=== PATIENT | male | born 1960 | race Two or more races ===

== ENCOUNTER 2017-09-25 11:08 | Emergency (ER) | payer MEDICAID, OTHER ==
[2017-09-25 11:21] VITALS: BP 141/90; PULSE 91; RESP 18; TEMP 98.8; O2SAT 91
--- NOTE | 2017-09-25 11:27 | EDPHY ---
H & P Time Seen by Provider: 09/25/17 11:15 HPI/ROS: 57-year-old male presents complaining of right hand swelling and left knee swelling exactly like multiple prior episodes of gout. No fever or chills He states he has allopurinol, but that is not working. Review of systems As per HPI General no fever no chills no weakness HEENT no eye pain no eye discharge. No eye redness, no sore throat Respiratory no cough, no shortness of breath Cardiac no chest pain, no peripheral edema GI no abdominal pain, no diarrhea, no constipation, no nausea, no vomiting no flank pain, no hematuria, no dysuria Musculoskeletal no myalgias, positive joint pain Heme no easy bruising, no easy bleeding Endo no polyuria, no polydipsia Skin no rashes, no pruritus Neuro no syncope, no dizziness, no headaches Psych is no suicidal ideation, no homicidal ideation Past Medical/Surgical History: Hypertension, hyperlipidemia, gout Social History: Smokes tobacco Denies drug use Smoking Status: Current every day smoker Physical Exam: 57-year-old male alert and oriented no acute distress nontoxic appearance afebrile Atraumatic normocephalic Neck supple Lungs clear to auscultation bilaterally Heart regular rate and rhythm Abdomen nondistended bowel sounds present Extremities Right hand with erythema and swelling to dorsum of hand, good capillary refill good range of motion of digits Left knee mild erythema no increased warmth no gross swelling, full range of motion, distal pulses intact, no calf pain no calf tenderness Constitutional: Initial Vital Signs Temperature (C) 37.1 C 09/25/17 11:18 Heart Rate 91 09/25/17 11:18 Respiratory Rate 18 09/25/17 11:18 Blood Pressure 141/90 H 09/25/17 11:18 O2 Sat (%) 91 L 09/25/17 11:18 O2 Delivery Mode Room Air Allergies/Adverse Reactions: No Known Allergies Allergy (Verified 09/25/17 11:17) Home Medications: Medication Instructions Recorded Allopurinol [Allopurinol 100 MG 12/26/12 (RX)] Indomethacin 50 mg PO 12/26/12 Lisinopril 40 mg 12/26/12 Lovastatin 20 mg PO 12/26/12 Oxycodone HCl 5 mg PO 12/26/12 oxyCODONE/APAP 5/325 [Percocet 1 tab PO Q2-3PRN PRN #10 tab 12/26/12 5/325] oxyCODONE/APAP 5/325 [Percocet 1 tab PO Q6 #10 tab 07/03/14 5/325] Hydrocodone/Acetaminophen [[place] 1 - 2 tab PO Q6H PRN #12 tab 09/25/17 5/325 (*)] methylPREDNISolone [Medrol Dose 1 each PO AD #1 ea 09/25/17 Malcom] Medical Decision Making ED Course/Re-evaluation: Patient seen and evaluated for right hand swelling and left knee pain and mild swelling consistent with prior gout episodes Impression Gout Plan Medrol Dosepak Vicodin, given #12 Differential Diagnosis: Gout, joint infection, osteoarthritis, musculoskeletal trauma Departure - Departure Disposition: Home, Routine, Self-Care Clinical Impression: Gout of right hand, Gout of left knee Condition: Good Instructions: Gout (ED) Referrals: SYDNEY BURDICK,Edelmira [Primary Care Provider] - As per Instructions Prescriptions: Hydrocodone/Acetaminophen [[place] 5/325 (*)] 1 - 2 tab PO Q6H PRN #12 tab PRN Reason: Pain, Moderate methylPREDNISolone [Medrol Dose Malcom] 1 each PO AD #1 ea Print Language: Pashto
== END 2017-09-25 11:40 | disposition home or self-care (01) ==
LOC: CED 11:08
DX: M10.9 Gout, unspecified (principal); I10 Essential (primary) hypertension; F17.200 Nicotine dependence, unspecified, uncomplicated

== ENCOUNTER 2018-11-29 11:02 | Emergency (ER) | payer MEDICAID ==
[2018-11-29 11:19] VITALS: BP 160/112
--- NOTE | 2018-11-29 11:44 | EDPHY ---
H & P Stated Complaint: left knee pain "gout" x few days .hard to walk using crutches for 2 days Time Seen by Provider: 11/29/18 11:13 HPI/ROS: Chief Complaint: Knee pain HPI: 58-year-old male with a history of osteoarthritis and gout is presenting with worsening left knee pain for the last 3 days. Patient states he ran out of his oxycodone. He has not been taking his allopurinol or indomethacin as prescribed. He has had use crutches to walk. He normally sees Dr. Garcia at clinic up but has not been able to get in. Last saw Dr. Guevara last month. No new swelling. No redness. No warmth. No fever. He states he has otherwise been taking his medications as prescribed. ROS: 10 systems were reviewed and were negative except those elements noted in the HPI. PMH: Gout, osteoarthritis Social History: Occasional smoking, no alcohol, no recreational drug use Family History: non-contributory Physical Exam: Gen: Awake, Alert, No Distress HEENT: Nose: no rhinorrhea Eyes: PERRLA, EOMI Mouth: Moist mucosa Neck: Supple, no JVD Chest: nontender, lungs clear to auscultation Heart: S1, S2 normal, no murmur Abd: Soft, non-tender, no guarding Back: no CVA tenderness, no midline tenderness Ext: no edema, left knee is tender. Decreased range of motion secondary to pain. Does mild crepitus on flexion extension. Diffuse tenderness. There is no effusion. It is not warm to touch. 2+ DP PT pulses. Capillary refills less than 3 sec. Sensations intact distally. Skin: no rash Neuro: CN II-XII intact, Sensation grossly intact, Strength 5/5 in bilateral upper and lower extremities - Personal History Current Tetanus/Diphtheria Vaccine: Unsure Current Tetanus Diphtheria and Acellular Pertussis (TDAP): Unsure - Medical/Surgical History Hx Asthma: No Hx Chronic Respiratory Disease: No Hx Diabetes: No Hx Cardiac Disease: No Hx Renal Disease: No Hx Cirrhosis: No Hx Alcoholism: No Hx HIV/AIDS: No Hx Splenectomy or Spleen Trauma: No Other PMH: PMH: GOUT,HTN,ARTHRITIS. PSH:HERNIA,L EYE CATARACT - Social History Smoking Status: Current every day smoker Constitutional: Initial Vital Signs Temperature (C) 36.9 C 11/29/18 11:12 Heart Rate 94 11/29/18 11:12 Respiratory Rate 18 11/29/18 11:12 Blood Pressure 160/112 H 11/29/18 11:12 O2 Sat (%) 94 11/29/18 11:12 O2 Delivery Mode Room Air Allergies/Adverse Reactions: No Known Allergies Allergy (Verified 11/29/18 11:10) Home Medications: Medication Instructions Recorded Allopurinol [Allopurinol 100 MG 12/26/12 (RX)] Indomethacin 50 mg PO 12/26/12 Lisinopril 40 mg 12/26/12 Lovastatin 20 mg PO 12/26/12 Medical Decision Making ED Course/Re-evaluation: 58-year-old male with a history of osteoarthritis and gout presenting with worsening left knee pain. Patient states he drives medications. I have reviewed the prescription drug monitoring program. Indicates that he filled a prescription for oxycodone on the 03 of November and again on the 07 of November. Each of these were 56 5-325 oxycodone. These are also filled at separate pharmacies. I have instructed him that he needs to continue taking his indomethacin and allopurinol. Given the fact that he has gone through 112 oxycodone I do not feel that further narcotics are indicated at this time. I have shown him the results from his prescription drug monitoring program surge. I have instructed him to follow up with his doctor at [facility] for further evaluation. Departure - Departure Disposition: Home, Routine, Self-Care Clinical Impression: Osteoarthritis, Opioid abuse Condition: Good Instructions: Osteoarthritis (ED) Additional Instructions: Please only take your opioid pain medications as prescribed. Take ibuprofen, 600 mg every 8 hr. You may alternate with acetaminophen, 1000 mg every 8 hr. Follow up with primary care physician in 2-3 days for further evaluation. Referrals: NARCISA GARCIA [Primary Care Provider] - As per Instructions
== END 2018-11-29 11:58 | disposition home or self-care (01) ==
LOC: CED 11:02
DX: M25.562 Pain in left knee (principal); M17.12 Unilateral primary osteoarthritis, left knee; M10.9 Gout, unspecified; I10 Essential (primary) hypertension; Z79.899 Other long term (current) drug therapy; F11.10 Opioid abuse, uncomplicated
CPT/HCPCS: 99282-ER

== ENCOUNTER 2019-01-24 17:05 | Emergency (ER) | payer MEDICAID ==
[2019-01-24] MEDS ORDERED: CEPHALEXIN 500 MG CAP PO ONE (18:16)
--- NOTE | 2019-01-24 19:17 | EDPHY ---
H & P Time Seen by Provider: 01/24/19 17:21 HPI/ROS: This patient injured his right 5th finger at home while he was working on a fence when a large board slammed down on his right 5th finger distal phalanx dorsal aspect with 30 nail avulsion and laceration. Patient complains of 7/10 pain and moderate bleeding that slowed with direct pressure. He did not take any medications prior to arrival for this. He notes no other exacerbating factors denies any other injuries. The patient is primarily Slovak speaking so translation service was employed for the history. Patient denies any other complaints. He reports that his tetanus is [id number] less than 5 years. ROS: Neuro: No numbness or tingling the affected finger Musculoskeletal: He admits bony pain to the distal finger tip. No difficulty moving the affected finger however. No other injuries 5 point review of symptoms is performed and otherwise negative with exception of pertinent positives and negatives listed in HPI and ROS Past Medical/Surgical History: Otherwise healthy with tetanus up-to-date Social History: No alcohol use Smoking Status: Current every day smoker Physical Exam: Physical Exam Vital signs are normal. General: No acute distress Eyes: Pupils equal and react to light. Extraocular motions are intact. Lungs: No respiratory distress. Cardiac: Brisk capillary refill is intact throughout. Pulses are 2+ and symmetric in the affected extremity. Skin: No rash or pallor. Extremities: Atraumatic normal except for right hand exam Right hand: Patient has a crush injury to the distal phalanx of the right 5th finger with complete avulsion of the proximal fingernail. The distal 1/3 of the nail is intact on the nail bed but the region the nail bed between that intact distal 3rd and the eponychium is completely macerated. There is mild bleeding. There is mild dirt contamination. Patient has moderate tenderness to the distal phalanx. Neuro: Alert and oriented with no sensorimotor deficits to the affected finger. Initial differential diagnosis: Open tuft fracture, nail bed injury without fracture, Constitutional: Initial Vital Signs Temperature (C) 36.6 C 01/24/19 17:14 Heart Rate 82 01/24/19 17:14 Respiratory Rate 18 01/24/19 17:14 Blood Pressure 164/109 H 01/24/19 17:14 O2 Sat (%) 96 01/24/19 17:14 O2 Delivery Mode Room Air Allergies/Adverse Reactions: No Known Allergies Allergy (Verified 11/29/18 11:10) Home Medications: Medication Instructions Recorded Allopurinol [Allopurinol 100 MG 12/26/12 (RX)] Indomethacin 50 mg PO 12/26/12 Lisinopril 40 mg 12/26/12 Lovastatin 20 mg PO 12/26/12 Cephalexin [Keflex (*)] 500 mg PO TID #15 cap 01/24/19 traMADol [Ultram 50 mg (*)] 50 - 100 mg PO Q4 PRN #12 tab 01/24/19 MDM/Departure - MDM Imaging Results: Imaging Impressions Finger X-Ray 01/24/19 17:34 Impression: Comminuted tuft fracture. Difficult to exclude an open injury. Finger x-rays: Comminuted tuft fracture mildly displaced by my interpretation Imaging: I viewed and interpreted images myself Procedures: Digital block: After verbal consent, using a 50 50 mix of 0.5% Marcaine 2% plain lidocaine, 27 gauge needle, chlorhexidine scrub under sterile conditions- 3 injections were administered to the base of the affected finger, 8 mL with good effect. Patient tolerated this well. There were no complications. The wound is macerated 1.5 cm contaminated with dirt. The wound was copiously irrigated with saline and scrubbed by myself with baby shampoo and warm water with sterile gauze until all local dirt contamination was removed. The wound was explored for foreign bodies and none were found. The wound was prepped and draped in the normal sterile fashion. The edges were reapproximated using 4 0 Prolene 2 interrupted sutures will with most of the nail bed missing I removed the distal fingernail and then used 5 0 fast-absorbing gut from the distal finger tip to the lateral eponychial region to partially approximate the macerated tissue as there was nothing left suture and the nail bed itself. I obtained good hemostasis. Since the proximal nail is missing with significant injury to the eponychial region was unable to achieve a cosmetic result. The patient tolerated the procedure well. There were no complications. Bacitracin , dressing were then applied Medications Given: Discontinued Medications Cephalexin HCl (Keflex) 500 mg PO EDNOW ONE PRN Reason: Protocol Stop: 01/24/19 18:17 Last Admin: 01/24/19 18:26 Dose: 500 mg ED Course/Re-evaluation: Splinting: Our tech placed a volar Alumafoam splint a crosses the D IP joint and places it mild hyper extension according to my instructions. This is applied after Vaseline impregnated gauze and regular gauze dressing. We counseled the patient regarding his injury in some detail. Given the dirt contamination is treated with a dose of Keflex and will continue that for the next 5 days Ibuprofen Tylenol and tramadol if needed for pain that prevents sleep. The patient will follow up with lucinda Thomas hand specialist for further evaluation 5-7 days - Depart Disposition: Home, Routine, Self-Care Clinical Impression: Open fracture of tuft of distal phalanx of finger Fingernail avulsion, complete Qualifiers: Encounter type: initial encounter Qualified Code(s): S61.309A - Unspecified open wound of unspecified finger with damage to nail, initial encounter Nailbed laceration, finger Qualifiers: Encounter type: initial encounter Qualified Code(s): S61.319A - Laceration without foreign body of unspecified finger with damage to nail, initial encounter Condition: Good Instructions: Finger Fracture (ED), Care For Your Absorbable Stitches (ED) Additional Instructions: Diagnosis: Open tuft fracture of finger 2. Fingernail avulsion 3. Nail bed laceration I placed 2 absorbable sutures in your nail bed. Plan: Keep the wound clean and dry for the next 2 days with splint in place. After that, gently remove the splint in gently clean wound and warm water with baby shampoo or soft soap. Keflex antibiotic as prescribed Ibuprofen Tylenol for pain if needed. Tramadol in addition if he have pain that prevents sleep. No driving, alcohol work on tramadol Call Dr. Thomas-hand specialist arrange follow-up appointment for recheck in 5-7 days. Return sooner to the emergency department if he develops redness, discharge, fevers or other concerns for infection despite the treatment plan. Diagnstico: Fractura del dedo 2 penacho abierto. Avulsin de ua 3. Laceracin de la cama de la ua. Coloqu 2 suturas absorbibles en jean cama de jean ua. Plan: Mantener la herida limpia y seca por los prximos 2 linares con la frula en jean lugar. Despus, retire suavemente la frula en la herida y limpie suavemente con agua tibia y jabn suave o champ para beb. [place] el antibitico Keflex recetado Ibuprofeno Tylenol para el dolor si es necesario. Tramadol adems si l con dolor le impide dormir. No se puede conducir, sirena alcohol o trabajar si esta tomando el tramadol Llame al especialista Dr. Thomas, para programar cole mary de seguimiento en 5-7 d as. Regrese antes al departamento de emergencias si presenta enrojecimiento, secreci n, fiebre u otras preocupaciones para la infeccin a pesar del plan de tratamiento. Prescriptions: Cephalexin [Keflex (*)] 500 mg PO TID #15 cap traMADol [Ultram 50 mg (*)] 50 - 100 mg PO Q4 PRN #12 tab PRN Reason: breakthrough pain Referrals: HEAVENLY GRIMES [Other] - As per Instructions Jeremy Thomas MD [Medical Doctor] - As per Instructions
[2019-01-24 19:18] VITALS: BP 143/99
== END 2019-01-24 19:48 | disposition home or self-care (01) ==
LOC: CED 17:05
PROC: 0HQQXZZ Repair Finger Nail, External Approach (ICD-10-PCS; principal; 2019-01-24)
PROC: 0HQFXZZ Repair Right Hand Skin, External Approach (ICD-10-PCS; principal; 2019-01-24)
DX: S62.636B Displaced fracture of distal phalanx of right little finger, initial encounter for open fracture (principal); W20.8XXA Other cause of strike by thrown, projected or falling object, initial encounter; Y93.89 Activity, other specified
CPT/HCPCS: 73140-PO; 99284-ER; L3925-ER